=== PATIENT | female | born 1980 | race Caucasian/White ===

== ENCOUNTER 2016-12-05 02:21 | Emergency (ER) | payer SELFPAY ==
--- NOTE | 2016-12-05 02:35 | EDM.PDOC ---
ED HPI GENERAL MEDICAL PROBLEM - General Chief Complaint: Cardiovascular Problem Stated Complaint: fast heart beat nausea Time Seen by Provider: 12/05/16 02:35 - History of Present Illness INITIAL COMMENTS - FREE TEXT/NARRATIVE: 36-year-old female presents to the emergency room with episodes where she feels like she is in a pass out. 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 Anderson. She's not on medical management for this but is being observed. Patient is having multiple episodes where she feels like her pulse is racing and she is in a pass out. Patient is getting over what sounds like a URI however she's developed some diarrhea over the last 24 hours and she has to void very frequently she has some right-sided flank discomfort as well she denies fevers or chills. She has not had any no chest pain or chest pressure but she has had multiple episodes of racing heart. 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, Other OB/BYN History: - Past Surgical History Female Surgical History: Reports: Other (See Below) Social & Family History - Family History Family Medical History: Noncontributory - Tobacco Use Smoking Status *Q: Never Smoker - Recreational Drug Use Recreational Drug Use: No ED ROS GENERAL - Review of Systems Review Of Systems: See Below Constitutional: Denies: Fever, Chills, Diaphoresis HEENT: Reports: Other (She is getting over a cold) Respiratory: Reports: No Symptoms Cardiovascular: Reports: Palpitations, Other (Near syncope) Endocrine: Reports: No Symptoms GI/Abdominal: Reports: Diarrhea, Nausea. Denies: Abdominal Pain, Constipation, Vomiting : Reports: Flank Pain, Frequency Musculoskeletal: Reports: No Symptoms Neurological: Reports: Other (Near syncopal episodes). Denies: Confusion, Dizziness, Headache Psychiatric: Reports: No Symptoms. Denies: Agitation, Anxiety ED EXAM, GENERAL - Physical Exam Exam: See Below Exam Limited By: No Limitations General Appearance: Alert, No Apparent Distress Neck: Normal Inspection, Supple, Non-Tender. No: Lymphadenopathy (L), Lymphadenopathy (R) Respiratory/Chest: No Respiratory Distress, Lungs Clear, Normal Breath Sounds Cardiovascular: Regular Rate, Rhythm, No Edema, No Murmur GI/Abdominal: Normal Bowel Sounds, Soft, Non-Tender Back Exam: Normal Inspection, CVA Tenderness (R) (Mild). No: CVA Tenderness (L) Course - Vital Signs Last Recorded V/S: Last Vital Signs Temp 37.1 C 12/05/16 02:28 Pulse 76 12/05/16 02:28 Resp 16 12/05/16 02:28 BP 133/79 12/05/16 02:28 Pulse Ox 99 12/05/16 02:28 - Orders/Labs/Meds Orders: Active Orders 24 hr Category Date Time Status EKG Documentation Completion [RC] STAT Care 12/05/16 02:47 Active Labs: Laboratory Tests 12/05/16 12/05/16 12/05/16 Range/Units 02:50 02:58 02:58 WBC 8.31 (3.98-10.04) K/mm3 RBC 4.51 (3.98-5.22) M/mm3 Hgb 13.2 (11.2-15.7) gm/L Hct 39.3 (34.1-44.9) % MCV 87.1 (79.4-94.8) fl MCH 29.3 (25.6-32.2) pg MCHC 33.6 (32.2-35.5) g/dl RDW Std Deviation 40.2 (36.4-46.3) fL Plt Count 316 (182-369) K/mm3 MPV 9.7 (9.4-12.3) fl Neutrophils % (Manual) 84 H (40-60) % Band Neutrophils % 0 (0-10) % Lymphocytes % (Manual) 14 L (20-40) % Atypical Lymphs % 0 % Monocytes % (Manual) 1 L (2-10) % Eosinophils % (Manual) 1 (0.7-5.8) % Basophils % (Manual) 0 L (0.1-1.2) Platelet Estimate Adequate Plt Morphology Comment Normal RBC Morph Comment Normal Sodium 142 (136-145) mEq/L Potassium 3.4 L (3.5-5.1) mEq/L Chloride 106 (98-107) mEq/L Carbon Dioxide 25 (21-32) mEq/L Anion Gap 14.4 (5-15) BUN 11 (7-18) mg/dL Creatinine 0.8 (0.55-1.02) mg/dL Est Cr Clr Drug Dosing 72.65 mL/min Estimated GFR (MDRD) > 60 (>60) mL/min BUN/Creatinine Ratio 13.8 L (14-18) Glucose 119 H (74-106) mg/dL Calcium 8.8 (8.5-10.1) mg/dL Magnesium 2.0 (1.8-2.4) mg/dl Total Bilirubin 0.3 (0.2-1.0) mg/dL AST 14 L (15-37) U/L ALT 25 (14-59) U/L Alkaline Phosphatase 65 (46-116) U/L Total Protein 7.7 (6.4-8.2) g/dl Albumin 3.8 (3.4-5.0) g/dl Globulin 3.9 gm/dL Albumin/Globulin Ratio 1.0 (1-2) HCG, Qual (NEGATIVE) Urine Color Light yellow (Yellow) Urine Appearance Clear (Clear) Urine pH 6.5 (5.0-8.0) Ur Specific Sims 1.010 (1.005-1.030) Urine Protein Negative (Negative) Urine Glucose (UA) Negative (Negative) Urine Ketones Negative (Negative) Urine Occult Blood Negative (Negative) Urine Nitrite Negative (Negative) Urine Bilirubin Negative (Negative) Urine Urobilinogen 0.2 (0.2-1.0) Ur Leukocyte Esterase Negative (Negative) Urine RBC Not seen (0-5) /hpf Urine WBC 0-5 (0-5) /hpf Ur Epithelial Cells 0-5 (0-5) /hpf Urine Bacteria Few (FEW) /hpf Urine Mucus Not seen (FEW) /hpf 12/05/ Range/Units 02:58 WBC (3.98-10.04) K/mm3 RBC (3.98-5.22) M/mm3 Hgb (11.2-15.7) gm/L Hct (34.1-44.9) % MCV (79.4-94.8) fl MCH (25.6-32.2) pg MCHC (32.2-35.5) g/dl RDW Std Deviation (36.4-46.3) fL Plt Count (182-369) K/mm3 MPV (9.4-12.3) fl Neutrophils % (Manual) (40-60) % Band Neutrophils % (0-10) % Lymphocytes % (Manual) (20-40) % Atypical Lymphs % % Monocytes % (Manual) (2-10) % Eosinophils % (Manual) (0.7-5.8) % Basophils % (Manual) (0.1-1.2) Platelet Estimate Plt Morphology Comment RBC Morph Comment Sodium (136-145) mEq/L Potassium (3.5-5.1) mEq/L Chloride (98-107) mEq/L Carbon Dioxide (21-32) mEq/L Anion Gap (5-15) BUN (7-18) mg/dL Creatinine (0.55-1.02) mg/dL Est Cr Clr Drug Dosing mL/min Estimated GFR (MDRD) (>60) mL/min BUN/Creatinine Ratio (14-18) Glucose (74-106) mg/dL Calcium (8.5-10.1) mg/dL Magnesium (1.8-2.4) mg/dl Total Bilirubin (0.2-1.0) mg/dL AST (15-37) U/L ALT (14-59) U/L Alkaline Phosphatase (46-116) U/L Total Protein (6.4-8.2) g/dl Albumin (3.4-5.0) g/dl Globulin gm/dL Albumin/Globulin Ratio (1-2) HCG, Qual Negative (NEGATIVE) Urine Color (Yellow) Urine Appearance (Clear) Urine pH (5.0-8.0) Ur Specific Sims (1.005-1.030) Urine Protein (Negative) Urine Glucose (UA) (Negative) Urine Ketones (Negative) Urine Occult Blood (Negative) Urine Nitrite (Negative) Urine Bilirubin (Negative) Urine Urobilinogen (0.2-1.0) Ur Leukocyte Esterase (Negative) Urine RBC (0-5) /hpf Urine WBC (0-5) /hpf Ur Epithelial Cells (0-5) /hpf Urine Bacteria (FEW) /hpf Urine Mucus (FEW) /hpf Meds: Medications Discontinued Medications Generic Name Dose Route Start Last Admin Trade Name Brittany PRN Reason Stop Dose Admin Lactated Ringer's 1,000 mls @ 999 mls/hr 12/05/16 02:51 12/05/16 03:01 Ringers, Lactated IV 12/05/16 03:51 999 mls/hr .BOLUS ONE Administration Ondansetron HCl 4 mg 12/05/16 05:06 12/05/16 05:11 Zofran Odt PO 12/05/16 05:07 4 mg ONETIME ONE Administration Potassium Chloride 40 meq 12/05/16 05:02 Klor-Con M20 PO 12/05/16 05:03 ONETIME ONE - Re-Assessments/Exams Free Text/Narrative Re-Assessment/Exam: 12/05/16 05:08 Patient doing much better after a liter of fluid she still little bit nauseated. Labs remarkable for potassium of 3.4 CBC is mostly normal 84% segs and no bands urinalysis does not appear infected hCG is negative. We'll discharge the patient with some Zofran we will give her 40 mEq of potassium before she leaves. Departure - Departure Time of Disposition: 05:09 Disposition: Home, Self-Care 01 Clinical Impression: Neurocardiogenic syncope, Hypokalemia, Nausea Prescriptions: Potassium Chloride [Klor-Con M20] 20 meq PO BID #4 tab.er Referrals: Palak Adame, MICROBIOLOGY TECHNICIAN [Primary Care Provider] - Forms: ED Department Discharge Additional Instructions: Return to the emergency room with any questions or problems or worsening symptoms. Follow-up with her regular provider early next week have her potassium rechecked. Push lots of fluids such as Gatorade. You been given a prescription from the machine in the waiting room for Zofran use 1 every 6 hours as needed for nausea and vomiting. He been given prescription for potassium take 1 twice a day for 2 days. - My Orders Last 24 Hours: My Active Orders 12/05/16 02:47 EKG Documentation Completion [RC] STAT - Assessment/Plan Last 24 Hours: My Active Orders 12/05/16 02:47 EKG Documentation Completion [RC] STAT
[2016-12-05 02:41] VITALS: BP 133/79
[2016-12-05] MEDS ORDERED: Lactated Ringers 1,000 ML IV ONE (02:51)
[2016-12-05] MEDS ORDERED: Potassium Chloride 20 MEQ Tab.ER PO ONE (05:02)
[2016-12-05] MEDS ORDERED: Ondansetron 4 MG Tab.DIS PO ONE (05:06)
== END 2016-12-05 05:35 | disposition home or self-care (01) ==
LOC: JD.ED 02:21
DX: R55 Syncope and collapse (principal); E87.6 Hypokalemia; R11.0 Nausea
CPT/HCPCS: 36415; 80053; 81001; 83735; 84703; 85025; 93005; 96360; 99284; A9270; J7120; 99283

== ENCOUNTER 2016-12-06 03:21 | Emergency (ER) | payer SELFPAY ==
[2016-12-06 03:37] VITALS: BP 130/91
--- NOTE | 2016-12-06 03:54 | EDM.PDOC ---
ED HPI GENERAL MEDICAL PROBLEM - General Chief Complaint: Syncope Stated Complaint: CANNO SLEEP DUE TO HEALTH CONDITION Time Seen by Provider: 12/06/16 03:54 - History of Present Illness INITIAL COMMENTS - FREE TEXT/NARRATIVE: 36-year-old female returns to the emergency room with a sensation of palpitations and insomnia. Patient seen here last night she has a history of neuro cardiogenic syncope and she has been having more trouble with this. She tries to fall asleep and then has a startle response. The patient had a big evaluation last night revealing only some mild hypokalemia. She has not had any chest pain or chest pressure no breathing difficulties or shortness of breath. She feels on edge all the time and cannot relax she is keeping fluids scratch that. She is keeping fluids down however has occasional dry heaves. 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 Denies: Chest Pain GI/Abdominal: Reports: Vomiting (Dry heaves). Denies: Abdominal Pain, Constipation, Diarrhea : Reports: No Symptoms Musculoskeletal: Reports: No Symptoms Skin: Reports: No Symptoms Neurological: Reports: Dizziness. Denies: Seizure - Physical Exam Exam: See Below Exam Limited By: No Limitations General Appearance: Alert, Mild Distress (Secondary to the anxiety) Respiratory/Chest: No Respiratory Distress, Lungs Clear, Normal Breath Sounds Cardiovascular: Regular Rate, Rhythm, No Edema, No Murmur Extremities: Other (Support hose in place) Psychiatric: Anxious Course - Vital Signs Last Recorded V/S: Last Vital Signs Temp 37.0 C 12/06/16 03:35 Pulse 100 12/06/16 03:35 Resp 16 12/06/16 03:35 BP 130/91 H 12/06/16 03:35 Pulse Ox 98 12/06/16 03:35 - Orders/Labs/Meds Meds: Medications Discontinued Medications Generic Name Dose Route Start Last Admin Trade Name Brittany PRN Reason Stop Dose Admin Lorazepam 0.5 mg 12/06/16 04:07 12/06/16 04:22 Ativan PO 12/06/16 04:08 0.5 mg ONETIME ONE Administration Lorazepam 0.5 mg 12/06/16 05:03 12/06/16 05:20 Ativan PO 12/06/16 05:04 0.5 mg ONETIME ONE Administration - Re-Assessments/Exams Free Text/Narrative Re-Assessment/Exam: 12/06/16 05:04 She was seen here last night and had thorough evaluation. She continues not to sleep and have some anxiety secondary to her medical condition. She requests no repeat labs her EKG at this point. Patient is improved some with Ativan 0.5 but not nearly to the point where she can get the rest will give her an additional 0.5 and then discharge her home. 12/06/16 05:26 It is recommended that the patient that when she has her blood drawn this next week to discuss with her provider rechecking her TSH. Departure - Departure Time of Disposition: 05:12 Disposition: [facility] Clinical Impression: Neurocardiogenic syncope, Anxiety about health - Discharge Information Prescriptions: LORazepam [Ativan] 0.5 mg PO BID #20 tablet Instructions: Syncope, [id number] Referrals: PCP,Unknown [Primary Care Provider] - Forms: ED Department Discharge Additional Instructions: Return to the emergency room with any questions or problems. He been started on Ativan this is for anxiety and help sleep use 1 or 2 twice daily as needed. Allow 12 hours after using this medication before driving and returning to work. Follow-up in the clinic later this week for recheck.
[2016-12-06] MEDS ORDERED: LORazepam 0.5 MG Tab PO ONE ×2 (04:07→05:03)
== END 2016-12-06 06:49 | disposition home or self-care (01) ==
LOC: JD.ED 03:21
DX: R55 Syncope and collapse (principal); F41.9 Anxiety disorder, unspecified; Z88.8 Allergy status to other drugs, medicaments and biological substances
CPT/HCPCS: 99283; A9270

== ENCOUNTER 2021-02-27 12:59 | Emergency (ER) | payer SELFPAY ==
[2021-02-27 13:36] VITALS: BP 106/68; PULSE 91
--- NOTE | 2021-02-27 14:17 | EDM.PDOC ---
ED HPI GENERAL MEDICAL PROBLEM - General Chief Complaint: Flank Pain Stated Complaint: ABDOMINAL AND SPINE PAIN Time Seen by Provider: 02/27/21 14:05 - History of Present Illness INITIAL COMMENTS - FREE TEXT/NARRATIVE: 40-year-old female presents the emergency room with abdominal pain. Patient was referred to us for further evaluation from Edwige Newton nurse practitioner in [place]. Patient had a CT KUB done here yesterday with suspicions of a kidney stone. This showed a nonobstructing kidney stone on the left her pain is on the right predominantly. Patient is having worsening pain and was sent here for further evaluation. Patient states she has been having some abdominal pain getting worse over the last couple of days she has some mid back discomfort with this as well. She complains of some suprapubic discomfort at times as well. She has some discomfort when she voids but cannot give any more specific than this. He is not aware of any fevers or chills. She has not had any recent injuries or trauma to her back. She has no prior history of diverticulitis. She has had a appendectomy in the past but denies other abdominal surgeries. Right Back Pain Score (Numeric/FACES): 6 - Related Data Allergies Allergy/AdvReac Type Severity Reaction Status Date / Time droperidol [From Inapsine] Allergy Lethargy Verified 12/06/16 03:38 Home Meds: Home Meds Cefdinir [Omnicef] 300 mg PO BID #14 cap 02/27/21 [Rx] Disopyramide Phosphate 150 mg PO BID 02/27/21 [History] Hydrocodone/Acetaminophen [HYDROcodone-Acetaminophen 5-325 MG] 1 each PO Q6H PRN #10 tab 02/27/21 [Rx] Sertraline [Zoloft] 200 mg PO DAILY 02/27/21 [History] Tamsulosin [Flomax] 0.4 mg PO DAILY 02/27/21 [History] Past Medical History Cardiovascular History: Reports: Syncope, Other (See Below) Other Cardiovascular History: palpitations Respiratory History: Reports: Other (See Below) 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 Genitourinary History: Reports: Other (See Below) Other Genitourinary History: endometriosis END MAKER History: Reports: Endometriosis, Other END MAKER History: Psychiatric History: Reports: Depression - Past Surgical History GI Surgical History: Reports: Appendectomy Female Surgical History: Reports: Other (See Below) Other Female Surgeries/Procedures: surgery to bladder Musculoskeletal Surgical History: Reports: Other (See Below) Other Musculoskeletal Surgeries/Procedures:: rib fracture Social & Family History - Family History Family Medical History: No Pertinent Family History - Tobacco Use Tobacco Use Status *Q: Never Tobacco User Second Hand Smoke Exposure: No - Caffeine Use Caffeine Use: Reports: None - Recreational Drug Use Recreational Drug Use: No ED ROS GENERAL - Review of Systems Review Of Systems: See Below Constitutional: Reports: No Symptoms HEENT: Reports: No Symptoms Respiratory: Reports: No Symptoms Cardiovascular: Reports: No Symptoms GI/Abdominal: Reports: Abdominal Pain, Nausea. Denies: Constipation, Diarrhea : Reports: Dysuria, Flank Pain, Urgency Musculoskeletal: Reports: No Symptoms ED EXAM, GENERAL - Physical Exam Exam: See Below Exam Limited By: No Limitations General Appearance: Alert, No Apparent Distress Head: Atraumatic, Normocephalic Neck: Normal Inspection, Supple, Non-Tender, Full Range of Motion. No: Lymphadenopathy (L), Lymphadenopathy (R) Respiratory/Chest: No Respiratory Distress, Lungs Clear, Normal Breath Sounds Cardiovascular: Regular Rate, Rhythm, No Edema, No Murmur GI/Abdominal: Normal Bowel Sounds, Soft, Other (He has suprapubic discomfort more off to the right side) Back Exam: CVA Tenderness (R). No: CVA Tenderness (L) Extremities: Normal Inspection Neurological: Alert, Oriented, Normal Cognition Course - Vital Signs Last Recorded V/S: Last Vital Signs Temp 36.2 C 02/27/21 13:27 Pulse 91 02/27/21 13:27 Resp 16 02/27/21 13:27 BP 106/68 02/27/21 13:27 Pulse Ox 97 02/27/21 13:27 - Orders/Labs/Meds Orders: Active Orders 24 hr Category Date Time Status BLOOD CULTURE [MREF] Stat Lab 02/27/21 16:15 Received BLOOD CULTURE [MREF] Stat Lab 02/27/21 16:22 Received CULTURE URINE [MREF] Stat Lab 02/27/21 14:40 Received cefTRIAXone [Rocephin] 2 gm Med 02/27/21 16:00 Active Sodium Chloride 0.9% [Normal Saline] 100 ml IV Q24H Blood Culture x2 Reflex Set [OM.PC] Stat Oth 02/27/21 15:56 Ordered Medication Orders Ceftriaxone Sodium 2 gm/ (Sodium Chloride) 100 mls @ 200 mls/hr IV Q24H LEROY Last Admin: 02/27/21 16:42 Dose: 200 mls/hr Documented by: [facility] Labs: Laboratory Tests 02/27/21 02/27/21 02/27/21 Range/Units 14:40 14:40 14:40 WBC 10.16 H (3.98-10.04) K/mm3 RBC 4.06 (3.98-5.22) M/mm3 Hgb 12.1 (11.2-15.7) gm/dl Hct 36.3 (34.1-44.9) % MCV 89.4 (79.4-94.8) fl MCH 29.8 (25.6-32.2) pg MCHC 33.3 (32.2-35.5) g/dl RDW Std Deviation 41.8 (36.4-46.3) fL Plt Count 261 D (182-369) K/mm3 MPV 9.8 (9.4-12.3) fl Neut % (Auto) 94.7 H (34.0-71.1) % Lymph % (Auto) 1.6 L (19.3-51.7) % Barron % (Auto) 3.2 L (4.7-12.5) % Eos % (Auto) 0.1 L (0.7-5.8) Baso % (Auto) 0.2 (0.1-1.2) % Neut # (Auto) 9.62 H (1.56-6.13) K/mm3 Lymph # (Auto) 0.16 L (1.18-3.74) K/mm3 Barron # (Auto) 0.33 (0.24-0.36) K/mm3 Eos # (Auto) 0.01 L (0.04-0.36) K/mm3 Baso # (Auto) 0.02 (0.01-0.08) K/mm3 Manual Slide Review Abnormal smear Sodium (136-145) mEq/L Potassium (3.5-5.1) mEq/L Chloride (98-107) mEq/L Carbon Dioxide (21-32) mEq/L Anion Gap (5-15) BUN (7-18) mg/dL Creatinine (0.55-1.02) mg/dL Est Cr Clr Drug Dosing Estimated GFR (MDRD) (>60) mL/min BUN/Creatinine Ratio (14-18) Glucose (70-99) mg/dL Lactic Acid (0.4-2.0) mmol/L Calcium (8.5-10.1) mg/dL Total Bilirubin (0.2-1.0) mg/dL AST (15-37) U/L ALT (14-59) U/L Alkaline Phosphatase (46-116) U/L C-Reactive Protein (<1.0) mg/dL Total Protein (6.4-8.2) g/dl Albumin (3.4-5.0) g/dl Globulin gm/dL Albumin/Globulin Ratio (1-2) Lipase (73-393) U/L Urine Color Yellow (Yellow) Urine Appearance Slt cloudy H (Clear) Urine pH 8.5 H (5.0-8.0) Ur Specific [place] 1.015 (1.005-1.030) Urine Protein Negative (Negative) Urine Glucose (UA) Negative (Negative) Urine Ketones 2+ H (Negative) Urine Occult Blood Trace-intact H (Negative) Urine Nitrite Positive H (Negative) Urine Bilirubin Negative (Negative) Urine Urobilinogen 0.2 (0.2-1.0) Ur Leukocyte Esterase 2+ H (Negative) Urine RBC 0-5 (0-5) /hpf Urine WBC 10-20 H (0-5) /hpf Ur Squamous Epith Cells 0-5 (0-5) /hpf Urine Bacteria Many H (FEW) /hpf Urine Mucus Few (FEW) /hpf Urine HCG, Qual Negative (NEGATIVE) 02/27/21 02/27/21 02/27/21 Range/Units 14:40 14:40 16:15 WBC (3.98-10.04) K/mm3 RBC (3.98-5.22) M/mm3 Hgb (11.2-15.7) gm/dl Hct (34.1-44.9) % MCV (79.4-94.8) fl MCH (25.6-32.2) pg MCHC (32.2-35.5) g/dl RDW Std Deviation (36.4-46.3) fL Plt Count (182-369) K/mm3 MPV (9.4-12.3) fl Neut % (Auto) (34.0-71.1) % Lymph % (Auto) (19.3-51.7) % Barron % (Auto) (4.7-12.5) % Eos % (Auto) (0.7-5.8) Baso % (Auto) (0.1-1.2) % Neut # (Auto) (1.56-6.13) K/mm3 Lymph # (Auto) (1.18-3.74) K/mm3 Barron # (Auto) (0.24-0.36) K/mm3 Eos # (Auto) (0.04-0.36) K/mm3 Baso # (Auto) (0.01-0.08) K/mm3 Manual Slide Review Sodium 136 (136-145) mEq/L Potassium 3.2 L (3.5-5.1) mEq/L Chloride 101 (98-107) mEq/L Carbon Dioxide 21 (21-32) mEq/L Anion Gap 17.2 H (5-15) BUN 10 (7-18) mg/dL Creatinine 0.9 (0.55-1.02) mg/dL Est Cr Clr Drug Dosing TNP Estimated GFR (MDRD) > 60 (>60) mL/min BUN/Creatinine Ratio 11.1 L (14-18) Glucose 91 (70-99) mg/dL Lactic Acid 0.5 (0.4-2.0) mmol/L Calcium 8.4 L (8.5-10.1) mg/dL Total Bilirubin 0.6 (0.2-1.0) mg/dL AST 25 (15-37) U/L ALT 18 (14-59) U/L Alkaline Phosphatase 70 (46-116) U/L C-Reactive Protein 12.9 H* (<1.0) mg/dL Total Protein 6.9 (6.4-8.2) g/dl Albumin 3.2 L (3.4-5.0) g/dl Globulin 3.7 gm/dL Albumin/Globulin Ratio 0.9 L (1-2) Lipase 46 L (73-393) U/L Urine Color (Yellow) Urine Appearance (Clear) Urine pH (5.0-8.0) Ur Specific [place] (1.005-1.030) Urine Protein (Negative) Urine Glucose (UA) (Negative) Urine Ketones (Negative) Urine Occult Blood (Negative) Urine Nitrite (Negative) Urine Bilirubin (Negative) Urine Urobilinogen (0.2-1.0) Ur Leukocyte Esterase (Negative) Urine RBC (0-5) /hpf Urine WBC (0-5) /hpf Ur Squamous Epith Cells (0-5) /hpf Urine Bacteria (FEW) /hpf Urine Mucus (FEW) /hpf Urine HCG, Qual (NEGATIVE) Meds: Medications Generic Name Dose Route Start Last Admin Trade Name Freq PRN Reason Stop Dose Admin Ceftriaxone Sodium 2 gm/ 100 mls @ 200 mls/hr 02/27/21 16:00 02/27/21 16:42 Sodium Chloride IV 200 mls/hr Q24H LEROY Administration Discontinued Medications Generic Name Dose Route Start Last Admin Trade Name Freq PRN Reason Stop Dose Admin Hydrocodone Bitart/Acetaminophen 1 tab 02/27/21 16:50 02/27/21 17:32 Acetaminophen/Hydrocodone 325-5 Mg Tab PO 02/27/21 16:51 1 tab ONETIME ONE Administration Fentanyl 50 mcg 02/27/21 14:19 02/27/21 14:40 Fentanyl 100 Mcg/2 Ml Sdv IVPUSH 02/27/21 14:20 50 mcg ONETIME ONE Administration Fentanyl 50 mcg 02/27/21 15:38 02/27/21 15:52 Fentanyl 100 Mcg/2 Ml Sdv IVPUSH 02/27/21 15:39 50 mcg ONETIME ONE Administration Fentanyl 25 mcg 02/27/21 16:50 02/27/21 17:33 Fentanyl 100 Mcg/2 Ml Sdv IVPUSH 02/27/21 16:51 25 mcg ONETIME ONE Administration Sodium Chloride 1,000 mls @ 999 mls/hr 02/27/21 14:19 02/27/21 14:40 Normal Saline IV 02/27/21 15:19 999 mls/hr ONETIME ONE Administration - Re-Assessments/Exams Free Text/Narrative Re-Assessment/Exam: 02/27/21 15:55 Was reviewed urinalysis is strongly suggestive of infectious process with her back pain I am suspicious for pyelonephritis. I will give her 2 g of Rocephin and see what kind of improvement we get also she had good relief initially from the 50 mcg of fentanyl I will repeat this. 02/27/21 17:59 Patient is doing a little better at this point and would like to try this at home. Early on we did discuss the end practicality of hospital admission. There is no beds available here no beds available in [place] and generally no beds available in the region. She is in agreement to trying home treatment. 02/27/21 18:01 Patient continues to improve we will discharge she will start Omnicef tomorrow afternoon and I will discharge her with some [place]. Departure - Departure Time of Disposition: 18:01 Disposition: Home, Self-Care 01 Clinical Impression: Pyelonephritis - Discharge Information Referrals: Edwige Newton NP [Primary Care Provider] - Forms: ED Department Discharge Additional Instructions: Return to the emergency room with any questions problems or worsening symptoms. Push lots of fluids at home, and for the next 24 hours clear liquid diet then slowly advance as tolerated. You have been started on hydrocodone you may take 1 every 6 hours as needed for pain. Your pain should improve significantly with the antibiotic therapy in the next 12 to [address] return to work within 12 hours of using the hydrocodone. Follow-up with your regular healthcare provider on Thursday for recheck. Sepsis Event Note (ED) - Evaluation Sepsis Screening Result: Possible Sepsis Risk - Focused Exam Vital Signs: Vital Signs Temp Pulse Resp BP Pulse Ox 02/27/21 13:27 36.2 C 91 16 106/68 97 - My Orders Last 24 Hours: My Active Orders 02/27/21 14:40 CULTURE URINE [MREF] Stat 02/27/21 15:56 Blood Culture x2 Reflex Set [OM.PC] Stat 02/27/21 16:00 cefTRIAXone [Rocephin] 2 gm Sodium Chloride 0.9% [Normal Saline] 100 ml IV Q24H 02/27/21 16:15 BLOOD CULTURE [MREF] Stat 02/27/21 16:22 BLOOD CULTURE [MREF] Stat - Assessment/Plan Last 24 Hours: My Active Orders 02/27/21 14:40 CULTURE URINE [MREF] Stat 02/27/21 15:56 Blood Culture x2 Reflex Set [OM.PC] Stat 02/27/21 16:00 cefTRIAXone [Rocephin] 2 gm Sodium Chloride 0.9% [Normal Saline] 100 ml IV Q24H 02/27/21 16:15 BLOOD CULTURE [MREF] Stat 02/27/21 16:22 BLOOD CULTURE [MREF] Stat
[2021-02-27] MEDS ORDERED: fentaNYL 100 MCG/2 ML SDV IVPUSH ONE ×3 (14:19→16:50)
[2021-02-27] MEDS ORDERED: Sodium Chloride 0.9% 1,000 ML IV ONE (14:19)
[2021-02-27] MEDS ORDERED: cefTRIAXone 2 GM in Sodium Chloride 0.9% 100 ML IV SCH (16:00)
[2021-02-27] MEDS ORDERED: Acetaminophen/HYDROcodone 325-5 MG Tab PO ONE (16:50)
== END 2021-02-27 18:30 | disposition home or self-care (01) ==
LOC: JD.ED 12:59
DX: N12 Tubulo-interstitial nephritis, not specified as acute or chronic (principal); Z88.5 Allergy status to narcotic agent
CPT/HCPCS: 36415; 80053; 81001; 81025; 83605; 83690; 85025; 86140; 87040; 87086; 87088; 87186; 96365; 96375; 96376; 99285; A9270; J0696; J3010; J7030; 99284